=== PATIENT | female | born 1990 ===

== ENCOUNTER 2025-04-02 06:10 | Day surgery (SDC) | payer OTHER ==
[2025-03-26 13:08] VITALS: BP 118/82
[~2025-04-02] VITALS: Ht 167.6 cm; Wt 80.7 kg
[2025-04-02] MEDS ORDERED: CEFTRIAXONE SODIUM 2,000 MG VIAL ONE (08:56)
[2025-04-02] MEDS ORDERED: ENOXAPARIN SODIUM 40 MG/0.4 ML SYRINGE SUBCUTANEO ONE (08:56)
[2025-04-02] MEDS ORDERED: CELEBREX200MG PO (11:32)
[2025-04-02] MEDS ORDERED: PERCOCET 5-3251 EACH PO (11:32)
[2025-04-02] MEDS ORDERED: NEURONTIN300 MG PO (11:32)
[2025-04-02] MEDS ORDERED: POLY119PG PO (11:32)
== END 2025-04-02 15:20 | disposition home or self-care (01) ==
LOC: CIR.AMB 06:10
PROVIDERS: ATTEND Surgery
DX: K40.90 Unilateral inguinal hernia, without obstruction or gangrene, not specified as recurrent (principal)
CPT/HCPCS: 49650; C1781